=== PATIENT | male | born 1995 | race Caucasian/White ===

== ENCOUNTER 2019-01-28 12:37 | Emergency (ER) | payer BC ==
[2019-01-28] MEDS ORDERED: Adacel (T-DAP) 0.5 ML SYRINGE ONE (13:05)
[2019-01-28] MEDS ORDERED: traMADol HCl 50 MG TAB ONE (14:03)
[2019-01-28] MEDS ORDERED: Bacitracin Zinc 1 Packet ONE (14:06)
--- NOTE | 2019-01-28 15:13 | RAD ---
RADIOGRAPH RIGHT HAND 3 VIEWS: 01/28/19 HISTORY: 23-year-old male status post puncture wound. FINDINGS: There is no radiopaque foreign body. No fracture, dislocation, or any other osseous abnormality. IMPRESSION: Negative. POS: [facility]
== END 2019-01-28 14:32 | disposition home or self-care (01) ==
LOC: SCSER 12:37
DX: S61.431A Puncture wound without foreign body of right hand, initial encounter (principal); J45.909 Unspecified asthma, uncomplicated; W26.8XXA Contact with other sharp object(s), not elsewhere classified, initial encounter
CPT/HCPCS: 90471; 90715